=== PATIENT | male | born 1955 | race Caucasian/White ===

== ENCOUNTER 2020-08-12 11:59 | Emergency (ER) | payer BC ==
[~2020-08-12 11:59] MED LIST: ASPIRIN EC81 MG PO; ATORVASTATIN CA20 MG PO; CLOPIDOGREL75 MG PO; DESYREL 50 MG T50 MG PO; ELIQUIS 5 MG TAB5 MG PO; HYDRALAZINE HCL25 MG PO; KEPPRA 500 MG500 MG PO; MELATONIN3 M3 PO; NORVASC 5 MG TAB5 MG PO; PRINIVIL20 MG PO
[2020-08-12 12:24] LABS: HEMOGLOBIN 15.4 gm/dl (14.0-17.5); RED BLOOD COUNT 4.65 M/UL (4.20-5.50); WHITE BLOOD COUNT 5.9 K/UL (4.5-11.0)
[2020-08-12 12:47] LABS: BUN/CREATININE RATIO 15 (0-10)
== END 2020-08-12 13:13 | disposition home or self-care (01) ==
LOC: ER1 11:59
PROVIDERS: Family Medicine
DX: I69.354 Hemiplegia and hemiparesis following cerebral infarction affecting left non-dominant side (principal); M79.10 Myalgia, unspecified site; G93.89 Other specified disorders of brain; R29.700 NIHSS score 0; Z79.01 Long term (current) use of anticoagulants
CPT/HCPCS: 70450; 80053; 82550; 82553; 83874; 84484; 85025; 93005; 99285

== ENCOUNTER → 2020-12-12 | Outpatient (CLI) | payer BC, OTHER | LOC: EXRD 13:08 | DX: M79.662 Pain in left lower leg (principal) | CPT/HCPCS: 93971 ==